=== PATIENT | male | born 1955 ===

== ENCOUNTER 2019-02-23 09:21 | Emergency (ER) | payer SELFPAY ==
[2019-02-23] MEDS ORDERED: Diphtheria,Pertussis(Acell),Tetanus Vaccine 0.5 ML Syringe IM ONE (09:27)
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
[2019-02-23] MEDS ORDERED: Sodium Chloride 0.9% 1,000 ML IV ONE (10:05)
[2019-02-23 10:06] LABS: CHLORIDE,CL 104 mmol/L (98-107); SODIUM,NA 142 mmol/L (136-148)
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
== END 2019-02-23 11:50 | disposition home or self-care (01) ==
LOC: MW.ED 09:21
DX: S49.92XA Unspecified injury of left shoulder and upper arm, initial encounter (principal); S00.81XA Abrasion of other part of head, initial encounter; S30.811A Abrasion of abdominal wall, initial encounter; Z23 Encounter for immunization; Z79.82 Long term (current) use of aspirin; Z79.899 Other long term (current) drug therapy; V49.49XA Driver injured in collision with other motor vehicles in traffic accident, initial encounter
CPT/HCPCS: 36415; 70450; 71045; 72125; 72170; 73030; 80053; 80305; 81001; 82550; 84484; 85025; 85610; 90471; 90715; 93005; 96360; 99284; G0480; J7040